=== PATIENT | female | born 1965 | race Caucasian/White ===

== ENCOUNTER → 2018-06-28 | Day surgery (SDC) | payer OTHER ==
[~2018-06-28] MED LIST: AMBIEN5 MG PO; CRESTOR20 MG PO; EFEXOR PO; INDERAL LA120 MG PO; JARDIANCE25 MG PO; NEURONTIN300 MG PO; PERCOCET 5-3251 EACH PO; RECTICARE30 GM TOP; VIT D3 PO; VIT E PO
== END | disposition home or self-care (01) ==
LOC: ADM 06-26 15:00 → CIR.AMB 05:10
DX: K60.1 Chronic anal fissure (principal); K64.4 Residual hemorrhoidal skin tags; K62.89 Other specified diseases of anus and rectum